=== PATIENT | male | born 1955 | race Caucasian/White ===

== ENCOUNTER 2016-10-18 05:19 | Emergency (ER) | payer MEDICAID ==
[~2016-10-18] VITALS: Ht 182.9 cm; Wt 95.5 kg
[2016-10-18] MEDS ORDERED: ATOR20TA86 PO (05:24)
[2016-10-18] MEDS ORDERED: RANO500T3 PO (05:24)
[2016-10-18 05:31] VITALS: BP 113/84
[2016-10-18 05:43] LABS: BASOPHILS # (AUTO) 0.06 K/uL (0.00-0.20); BASOPHILS % (AUTO) 0.6 % (0.0-2.0); EOSINOPHILS # (AUTO) 0.21 K/uL (0.00-0.70); EOSINOPHILS % (AUTO) 2.22 % (1.0-6.0); HEMATOCRIT 45.1 % (41-53); HEMOGLOBIN 15.5 g/dL (13.5-17.5); LYMPHOCYTES # (AUTO) 3.1 K/uL (1.0-4.8); LYMPHOCYTES % (AUTO) 33.4 % (22.0-44.0); MEAN CORPUSCULAR HEMOGLOBIN 31.1 pg (26.0-34.0); MEAN CORPUSCULAR HGB CONC 34.3 G/dL (31.0-37.0); MEAN CORPUSCULAR VOLUME 91 fL (80-100); MONOCYTES # (AUTO) 0.7 K/uL (0.1-1.0); NEUTROPHILS # (AUTO) 5.3 K/uL (1.8-7.7); NEUTROPHILS % (AUTO) 56.8 % (40.0-70.0); PLATELET COUNT (AUTO) 235 K/uL (150-450); RED BLOOD CELL COUNT(AUTO) 4.98 MIL/uL (4.50-5.90); RED CELL DISTRIBUTION WIDTH 13.7 % (11.5-14.5); WHITE BLOOD COUNT (AUTO) 9.4 K/uL (4.5-11.0)
[2016-10-18] MEDS ORDERED: NITROGLYCERIN 2% (1 GM=INCH) PACKET TP ONE (05:45)
[2016-10-18] MEDS ORDERED: HEPARIN SODIUM 25000 UNITS/D5W 250 ML IV ONE (05:52)
[2016-10-18 05:53] LABS: ANION GAP 10 mmol/L (8-16); CALCIUM, TOTAL 8.8 mg/dL (8.8-10.5); CARBON DIOXIDE 24 mmol/L (22-29); CHLORIDE 104 mmol/L (98-107); CREATININE 1.08 mg/dL (0.60-1.30); GLOMERULAR FILTR. RATE CALC > 60 mL/min (>60); POTASSIUM 3.6 mmol/L (3.5-5.1); SODIUM SERUM 138 mmol/L (136-145); UREA NITROGEN, BLOOD 16 mg/dL (7-18)
[2016-10-18] MEDS ORDERED: HEPARIN SODIUM,PORCINE 5,000 UNITS/ML VIAL SQ ONE (05:54)
[2016-10-18 05:55] LABS: PROTHROMBIN TIME 10.7 SEC (9.4-11.6)
[2016-10-18] MEDS ORDERED: HEPARIN SODIUM,PORCINE 5,000 UNITS/ML VIAL ONE (05:55)
[2016-10-18] MEDS ORDERED: HEPARIN SODIUM 1000 UNITS/NS 500 ML IV ONE (06:00)
[2016-10-18] MEDS ORDERED: HEPARIN SODIUM,PORCINE 5,000 UNITS/ML VIAL IVP ONE ×2 (06:00)
[2016-10-18] MEDS ORDERED: MORPHINE SULFATE 4 MG/ML SYRINGE IVP ONE ×3 (06:00)
[2016-10-18 06:07] LABS: B-TYPE NATRIURETIC PEPTIDE 9 pg/mL (0-100)
[2016-10-18 06:18] LABS: ALANINE AMINOTRANSFERASE 38 U/L (12-78); ALBUMIN 3.8 g/dL (3.4-5.0); ASPARTATE AMINOTRANSFERASE 23 U/L (15-37); BILIRUBIN,TOTAL 0.9 mg/dL (0.1-1.0); CREATINE KINASE MB 6.9 ng/mL (0-5); CREATINE KINASE, TOTAL 444 U/L (39-308); TOTAL PROTEIN, SERUM 6.8 g/dL (6.4-8.2)
== END 2016-10-18 06:00 | disposition short-term general hospital (02) ==
LOC: EMS 05:20
DX: I21.19 ST elevation (STEMI) myocardial infarction involving other coronary artery of inferior wall (principal); I20.9 Angina pectoris, unspecified; F17.210 Nicotine dependence, cigarettes, uncomplicated
CPT/HCPCS: 36415; 71010; 80053; 82550; 82553; 83880; 84484; 85025; 85610; 85730; 93005; 96374; 96375; 99285; J1644; J2270